=== PATIENT | female | born 1980 | race American Indian/Alaskan Native ===

== ENCOUNTER 2017-10-22 17:20 | Emergency (ER) | payer MEDICAID, OTHER ==
[2017-10-22 17:30] VITALS: BP 125/77
[2017-10-22] MEDS ORDERED: TORADOL IM ONE (19:37)
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
== END 2017-10-22 21:43 | disposition home or self-care (01) ==
LOC: ED 17:20
DX: S16.1XXA Strain of muscle, fascia and tendon at neck level, initial encounter (principal); R07.89 Other chest pain; J45.909 Unspecified asthma, uncomplicated; F17.200 Nicotine dependence, unspecified, uncomplicated; Z98.51 Tubal ligation status; V89.2XXA Person injured in unspecified motor-vehicle accident, traffic, initial encounter; Y93.89 Activity, other specified; Y92.89 Other specified places as the place of occurrence of the external cause; Y99.8 Other external cause status
CPT/HCPCS: 70450; 71046; 72125; 93005; 93010; 96372; 99284; J1885

== ENCOUNTER 2018-08-16 12:28 | Emergency (ER) | payer OTHER ==
[2018-08-16 12:36] VITALS: BP 117/72
--- NOTE | 2018-08-16 12:36 | Event Note ---
ED Screening Note Date of service: 08/16/18 Time: 12:35 ED Screening Note: This is a 37 y.o. F. that presents to the ER with laceration and pain to tongue since last night. This initial assessment/diagnostic orders/clinical plan/treatment(s) is/are subject to change based on patients health status, clinical progression and re- assessment by fellow clinical providers in the ED. Further treatment and workup at subsequent clinical providers discretion. Patient/guardian urged not to elope from the ED as their condition may be serious if not clinically assessed and managed. Initial orders include: ACC for further evaluation.
[2018-08-16] MEDS ORDERED: IBUPROFEN PO ONE (13:17)
--- NOTE | 2018-08-16 13:22 | Emergency Department Report ---
ED Laceration HPI - HPI Chief Complaint: Wound/Laceration Stated Complaint: MOUTH PAIN Time Seen by Provider: 08/16/18 12:34 Occurred When: Today Severity: mild Laceration Symptoms: Yes Pain, No Foreign Body Sensation, No Numbness, No Weakness Other History: This is a 37 y.o. F. that presents to the ER with laceration and pain to tongue since last night. ED Review of Systems ROS: Stated complaint: MOUTH PAIN Other details as noted in HPI Comment: All other systems reviewed and negative ED Past Medical Hx - Past Medical History Hx Asthma: Yes - Surgical History Additional Surgical History: BTL - Social History Smoking Status: Current Every Day Smoker Substance Use Type: Alcohol, Marijuana - Medications Home Medications: Home Medications Medication Instructions Recorded Confirmed Last Taken Type Prednisone [Prednisone 5 mg (6-Day 5 mg PO .TAPER #1 tab.ds.pk 11/27/13 Unknown Rx Pack, 21 Tabs)] Acetaminophen/Codeine 1 tab PO Q6H PRN #15 tab 03/24/14 Unknown Rx [Acetaminophen-Codeine #3 TAB] Fluconazole [Diflucan 200] 200 mg PO QDAY #1 tablet 03/24/14 Unknown Rx Ibuprofen [Motrin] 800 mg PO TID PRN #30 tablet 03/24/14 Unknown Rx Sulfamethoxazole/Trimethoprim 1 each PO BID #10 tablet 03/24/14 Unknown Rx [Bactrim Ds] Cyclobenzaprine [Flexeril] 10 mg PO BID PRN #20 tablet 10/22/17 Unknown Rx Menthol/Camphor [[place] 1 applicatio TP TID PRN #1 tube 10/22/17 Unknown Rx Ointment] Naproxen [Naprosyn] 500 mg PO BID PRN #30 tablet 10/22/17 Unknown Rx Laceration Physical Exam - Exam General: Vital signs noted. No distress. Alert and acting appropriately. Wound Length (cm): 1 Laceration Location: Other (frenulum) Laceration Exam: Yes Normal Distal CMS, No Foreign Body, No Exposed Tendon, Vessel, or Nerve, No Tendon Injury ED Course Vital Signs 08/16/18 12:34 Temperature 97.6 F Pulse Rate 60 Respiratory 18 Rate Blood Pressure 117/72 O2 Sat by Pulse 100 Oximetry ED Medical Decision Making - Medical Decision Making 37-year-old female presents to the emergency room for laceration of her frenulum. Patient was given ibuprofen in ACC. Discussed with patient that were not able to suture back her frenulum that her mouth sore/contact with on its own. Discussed the patient she can use warm salt water gargles and take ibuprofen as needed. I discussed the patient to avoid mouthwash peroxide and smoking cigarettes. Patient verbalized understanding Critical care attestation.: If time is entered above; I have spent that time in minutes in the direct care of this critically ill patient, excluding procedure time. ED Disposition Clinical Impression: Laceration of upper frenulum Qualifiers: Encounter type: initial encounter Qualified Code(s): S01.511A - Laceration without foreign body of lip, initial encounter Disposition: DC-01 TO HOME OR SELFCARE Is pt being admited?: No Does the pt Need Aspirin: No Condition: Stable Additional Instructions: Ibuprofen as needed for pain management. Wash mouth out with warm salt water weighted mouthwash alcohol or smoking peroxide. Forms: Work/School Release Form(ED)
== END 2018-08-16 13:20 | disposition home or self-care (01) ==
LOC: ED 12:28
DX: S01.512A Laceration without foreign body of oral cavity, initial encounter (principal); F17.200 Nicotine dependence, unspecified, uncomplicated; F12.90 Cannabis use, unspecified, uncomplicated; J45.909 Unspecified asthma, uncomplicated; X58.XXXA Exposure to other specified factors, initial encounter; Y93.89 Activity, other specified; Y92.89 Other specified places as the place of occurrence of the external cause; Y99.8 Other external cause status
CPT/HCPCS: 99281

== ENCOUNTER 2021-07-27 11:11 | Emergency (ER) | payer SELFPAY | END 2021-07-27 15:00 | disposition left against medical advice (07) | LOC: ED 11:11 | DX: J02.9 Acute pharyngitis, unspecified (principal); Z53.21 Procedure and treatment not carried out due to patient leaving prior to being seen by health care provider ==